=== PATIENT | female | born 1930 | race Caucasian/White ===

== ENCOUNTER 2022-02-06 10:16 | Emergency (ER) | payer MEDICARE ==
[2022-02-06 10:58] LABS: HEMOGLOBIN 10.3 gm/dl (12.3-15.3); RED BLOOD COUNT 3.25 M/UL (4.00-5.10); WHITE BLOOD COUNT 8.8 K/UL (4.5-11.0)
[2022-02-06 11:13] LABS: BUN/CREATININE RATIO 21 (0-10)
[2022-02-06] MEDS ORDERED: MACRODANTIN100 MG PO (14:02)
[2022-02-06] MEDS ORDERED: ZOFRAN ODT 4 MG4 MG SL (14:02)
[2022-02-08 09:17] LABS: HBSAG SCREEN Negative (Negative); HEP A AB, IGM Negative (Negative); HEP B CORE AB, IGM Negative (Negative); HEP C VIRUS AB <0.1 (0.0-0.9)
== END 2022-02-06 15:40 | disposition home or self-care (01) ==
LOC: ER1 10:16
PROVIDERS: Physician Assistant
DX: N39.0 Urinary tract infection, site not specified (principal); K82.0 Obstruction of gallbladder; K76.9 Liver disease, unspecified
CPT/HCPCS: 80048; 80074; 80076; 81001; 85025; 85610; 96374; 99284; J0696; J2405; J7030; Q9967